=== PATIENT | female | born 1940 | race Caucasian/White ===

== ENCOUNTER 2018-05-19 18:16 | Emergency (ER) | payer MEDICARE, SELFPAY ==
[2018-05-19 18:19] VITALS: BP 155/79; PULSE 74; RESP 20; TEMP 36.2; O2SAT 99; BMI 19.7
[2018-05-19] MEDS: KETOROLAC 60 MG/2 ML VIAL 15 MG IV (19:39)
[2018-05-19] MEDS: DEXAMETHASONE 10 MG/ML VIAL IV (19:39)
[2018-05-19] MEDS: SODIUM CHLORIDE 0.9% 1,000 ML 1000 ML IV (19:39)
[2018-05-19 19:46] LABS: Add Manual Diff / Slide Review NO; Basophils Percent Auto 0.9 % (0-2); Eosinophils Percent Auto 0.7 % (2-4); Hematocrit 38.6 % (36-46); Hemoglobin 13.6 g/dL (12.0-16.0); Lymphocytes Percent Auto 8.5 % (25-40); Mean Corpuscular HGB Conc 35.1 % (30-36); Mean Corpuscular Hemoglobin 31.3 PG (26-34); Mean Corpuscular Volume 89.1 fL (80-100); Monocytes Percent Auto 6.6 % (3-14); Neutrophils Absolute Auto 6600 /uL (3000-5900); Neutrophils Percent Auto 83.3 % (50-75); Platelet Count 155 X10^3/uL (150-400); Red Blood Cell Count 4.34 X10^6/uL (4.0-5.2); Red Cell Distribution Width 13.2 % (11.6-14.8); White Blood Cell Count 7.9 X10^3/uL (4.5-11.0)
--- NOTE | 2018-05-19 19:50 | ED.BACK ---
HPI - Back Pain/Injury General Chief Complaint: Back Pain/Injury Stated Complaint: SCIATICA HIP PAIN LOWER BACK TO LEGS Time Seen by Provider: 05/19/18 18:55 Source: patient Mode of arrival: wheelchair Limitations: no limitations History of Present Illness HPI Narrative: 78-year-old female smoker, with long history of sciatica presents with increasing pain over the past week. Her pain starts in her right lower back and goes into her right lower leg and even her left hip. She denies any urinary complaints such as dysuria, frequency or urgency. She denies any trouble starting or stopping her stream. She denies loss of control of bowels. She has no numbness in her groin. She denies any weakness to her lower extremities or foot drop. She denies any fever or recent injury. She has been under the care of chronic pain doctors and receives Ativan monthly. She has had facet injections on a few occasions and is hoping to get another on Monday. Her pain has been sufficient to limit her ability to eat and drink for the past few days and she lives at home alone with little to no help MD Complaint: back pain Onset (ago): day(s) Duration: constant Similar Symptoms Previously: Yes Location: lumbar spine Severity: severe Quality: burning, sharp and stabbing Radiation: right leg Severity scale (1-10): 8 Relieving factors: immobilization Exacerbating factors: walking Associated symptoms: denies other symptoms Related Data Previous Rx's Medication Instructions Recorded cephalexin [Keflex] 500 mg PO QID 7 Days #28 cap 05/19/18 hydrocodone-acetaminophen 1 tab PO Q4-6H PRN #14 tab 05/19/18 prednisone See Label Instructions .ROUTE 05/19/18 .COMPLEX #30 tab Allergies Allergy/AdvReac Type Severity Reaction Status Date / Time nitrofurantoin Allergy Verified 05/19/18 21:20 Review of Systems Review of Systems All systems reviewed & are unremarkable except as noted in HPI and below Constitutional Denies chills, Denies fever(s), Denies lethargy and Denies weakness Eyes Denies change in vision, Denies eye discharge, Denies irritation and Denies loss of vision ENT Ears, Nose, Mouth, and Throat: Denies change in voice, Denies neck pain and Denies sore throat Cardiovascular Denies chest pain, Denies irregular heart rhythm, Denies lightheadedness, Denies palpitations, Denies dyspnea, Denies dyspnea on exertion and Denies orthopnea Respiratory Denies cough, Denies dyspnea, Denies dyspnea on exertion and Denies wheezing Gastrointestinal Gastrointestinal: Denies abdominal pain, Denies change in bowel habits, Denies diarrhea, Denies nausea and Denies vomiting Genitourinary Denies hematuria, Denies flank pain, Denies urinary incontinence and Denies urinary urgency Musculoskeletal Reports abnormal gait, Reports back pain and Denies neck pain Integumentary/Breasts Denies pruritus, Denies erythema, Denies rash and Denies wounds Neurologic Reports abnormal gait, Denies confusion, Denies loss of vision and Denies weakness Psychiatric Denies anxiety, Denies confusion, Denies depression, Denies homicidal ideation and Denies suicidal ideation Endocrine Denies palpitations Hematologic/Lymphatic Denies easy bruising Allergic/Immunologic Denies wheezing [facility] Social History Smoking Status: Current every day smoker Exam Narrative Exam Narrative: 78-year-old female resting comfortably, obviously in some pain, but resting comfortably Initial Vital Signs Initial Vital Signs: Vital Signs Temperature 97.1 F L 05/19/18 18:19 Pulse Rate 74 05/19/18 18:19 Respiratory Rate 20 05/19/18 18:19 Blood Pressure 155/79 H 05/19/18 18:19 Pulse Oximetry 99 05/19/18 18:19 Const General: cooperative and well developed Nutritional Appearance: well nourished Orientation: alert, awake, oriented x3 and not confused [facility] Head: normocephalic and atraumatic Ears: external ears normal and TM's normal bilaterally Nose: external nose normal and No nasal discharge Face and sinus: sinuses nontender, face symmetric, no sinus tenderness and No dry mucous membranes Mouth: oral mucosae normal and moist mucous membranes Teeth and gingiva: dentition normal Throat: tonsils normal and uvula midline Eyes General: appearance normal, both eyes and all related structures Eyelids: eyelids normal Conjunctivae: conjunctivae normal Sclera: sclerae normal Pupils: PERRL EOM: EOM intact bilaterally Neck Neck: normal visual inspection, trachea midline, No lymphadenopathy, No midline deformity and No JVD Lymphatic: No lymphedema Chest Chest: normal inspection of the chest Resp Effort & Inspection: normal respiratory effort, able to speak in complete sentences, no respiratory distress and no use of accessory muscles Auscultation: clear to auscultation bilaterally, no rales, no rhonchi and no wheezes Cardio Rate: regular rate Rhythm: regular rhythm Heart Sounds: no click, no gallops, no murmurs and no rubs Pulses: normal peripheral pulses GI Inspection: non-distended Palpation: soft, no hepatosplenomegaly, No guarding, No pulsatile mass and No tender Auscultation: normal bowel sounds Back/Spine/Pelvis Back: No CVA tenderness Cervical Spine: cervical ROM normal and No pain with cervical ROM Thoracic/Lumbar Spine: straight leg raise negative bilaterally and pain with thoraco-lumbar ROM Skin General: no rashes or lesions noted, No jaundice and No petechiae Neuro General: alert, oriented x3, gait normal and no focal motor deficits Speech: speech normal Motor: muscle tone normal throughout Sensory Exam: no sensory deficits noted DTR's: Rt Patellar: 1+ and Lt Patellar: 1+ Extrem General: full ROM, no clubbing, cyanosis or edema, no pedal edema and no calf tenderness Psych Appearance: well kempt Mental Status: mental status grossly normal Attitude: cooperative Thought Content: normal and suicidality Judgment: judgment good Course Orders Ordered: ED Orders 05/19/18 19:36 Complete Blood Count AUTO DIFF Stat Comprehensive Metabolic Panel Stat Troponin & CK Cardiac Panel Stat 05/19/18 20:57 Urine Culture Stat Urine Microscopic Stat Discontinued Medications Cefazolin Sodium (Keflex) 1 bottle MISC SEEINSTR ONE Stop: 05/19/18 20:54 Last Admin: 05/19/18 20:58 Dose: 250 mg Dexamethasone (Decadron) 10 mg IV NOW ONE Stop: 05/19/18 19:04 Last Admin: 05/19/18 19:39 Dose: 10 mg Sodium Chloride (Normal Saline 0.9%) 1,000 mls @ 1,000 mls/hr IV BOLUS ONE Stop: 05/19/18 20:02 Last Infusion: 05/19/18 20:46 Dose: 0 mls/hr Admin: 05/19/18 19:39 Dose: 1,000 mls/hr Ketorolac Tromethamine (Toradol) 15 mg IV NOW ONE Stop: 05/19/18 19:04 Last Admin: 05/19/18 19:39 Dose: 15 mg Vital Signs - 8 hr 09/29/18 18:19 05/19/18 20:56 Temperature 97.1 F L Pulse Rate 74 77 Respiratory Rate 20 16 Blood Pressure 155/79 H Blood Pressure [Left Arm] 169/80 H Pulse Oximetry 99 97 MDM - Back Pain/Injury Lab Data Result diagrams: 05/19/18 19:36 05/19/18 19:36 Lab Results 05/19/18 05/19/18 05/19/18 Range/Units 19:36 19:36 19:36 WBC 7.9 (4.5-11.0) X10^3/uL RBC 4.34 (4.0-5.2) X10^6/uL Hgb 13.6 (12.0-16.0) g/dL Hct 38.6 (36-46) % MCV 89.1 (80-100) fL MCH 31.3 (26-34) PG MCHC 35.1 (30-36) % RDW 13.2 (11.6-14.8) % Plt Count 155 (150-400) X10^3/uL Neut % (Auto) 83.3 H (50-75) % Lymph % (Auto) 8.5 L (25-40) % [place] % (Auto) 6.6 (3-14) % Eos % (Auto) 0.7 L (2-4) % Baso % (Auto) 0.9 (0-2) % Neut # (Auto) 6600 H (9816-2332) /uL Sodium 134 L (137-145) mmol/L Potassium 3.7 (3.4-5.1) mmol/L Chloride 97 L (98-107) mmol/L Carbon Dioxide 28 (22-32) mmol/L BUN 13 (7-17) mg/dL Creatinine 0.70 (0.52-1.04) mg/dL Estimated GFR > 60.0 (>60) mL/min BUN/Creatinine Ratio 18.6 (6-22) Glucose 102 (80-110) mg/dL Calcium 9.3 (8.4-10.2) mg/dL Total Bilirubin 0.6 (0.2-1.3) mg/dL AST 19 (14-36) IU/L ALT 20 (9-52) IU/L Alkaline Phosphatase 92 (38-126) U/L Total Creatine Kinase 31 (30-135) U/L CK-MB (CK-2) TNP CK-MB (CK-2) Rel Index TNP Troponin I < 0.012 (0.01-0.034) ng/mL Total Protein 6.7 (6.3-8.2) g/dL Albumin 3.8 (3.5-5.0) g/dL Globulin 2.9 (1.7-4.1) g/dL Albumin/Globulin Ratio 1.3 (1.0-2.8) Urine RBC (0-5/HPF) Urine WBC (0-5/HPF) Ur Squamous Epith Cells Urine Bacteria (None) Ur Culture Indicated? Micro UA Comment 05/19/18 Range/Units 20:57 WBC (4.5-11.0) X10^3/uL RBC (4.0-5.2) X10^6/uL Hgb (12.0-16.0) g/dL Hct (36-46) % MCV (80-100) fL MCH (26-34) PG MCHC (30-36) % RDW (11.6-14.8) % Plt Count (150-400) X10^3/uL Neut % (Auto) (50-75) % Lymph % (Auto) (25-40) % [place] % (Auto) (3-14) % Eos % (Auto) (2-4) % Baso % (Auto) (0-2) % Neut # (Auto) (4796-6424) /uL Sodium (137-145) mmol/L Potassium (3.4-5.1) mmol/L Chloride (98-107) mmol/L Carbon Dioxide (22-32) mmol/L BUN (7-17) mg/dL Creatinine (0.52-1.04) mg/dL Estimated GFR (>60) mL/min BUN/Creatinine Ratio (6-22) Glucose (80-110) mg/dL Calcium (8.4-10.2) mg/dL Total Bilirubin (0.2-1.3) mg/dL AST (14-36) IU/L ALT (9-52) IU/L Alkaline Phosphatase (38-126) U/L Total Creatine Kinase (30-135) U/L CK-MB (CK-2) CK-MB (CK-2) Rel Index Troponin I (0.01-0.034) ng/mL Total Protein (6.3-8.2) g/dL Albumin (3.5-5.0) g/dL Globulin (1.7-4.1) g/dL Albumin/Globulin Ratio (1.0-2.8) Urine RBC None seen (0-5/HPF) Urine WBC 1-5/hpf (0-5/HPF) Ur Squamous Epith Cells 1-5 /hpf Urine Bacteria Few (2-10) H (None) Ur Culture Indicated? Specimen cultured Micro UA Comment Not Reportable Urine Dip Bedside Urine Glucose Negative Bedside Urine Bilirubin - Negative Bedside Urine Ketone +/- 5 Urine Specific [place] 1.015 Bedside Urine Occult Blood - Negative Bedside Urine pH 6.0 Bedside Urine Protein - Negative Bedside Urine Urobilinogen - Negative Bedside Urine Nitrite - Negative Bedside Urine Leukocytes +++ 500 Esterase Discharge Plan Departure Patient Disposition: Home Clinical Impression: Lumbar radiculopathy Discharge Date/Time: 05/19/18 21:22 Interventions: ED Discharge Assessment Last Done: 05/19/18 21:20 Instructions: DI for Lumbar Radiculopathy Activity Restrictions/Additional Instructions: *You have been diagnosed with [ Acute on chronic lumbar radiculopathy ] *What to do: *Take medications as directed *Follow up with your primary care provider in 2-3 days, call for an appointment. Let them know you were seen in the Emergency Department and that we ask that you be seen in follow up *Return to ER if you should have any new, worsening or concerning symptoms, such as [ loss of control of bowel or bladder, weakness severe lower extremities, numbness in your groin, other bothersome symptoms] Prescriptions: New prednisone 10 mg tablet See Label Instructions .ROUTE .COMPLEX Qty: 30 RF: 0 hydrocodone-acetaminophen 5-325 mg tablet 1 tab PO Q4-6H PRN (Reason: pain) Qty: 14 RF: 0 cephalexin [Keflex] 500 mg capsule 500 mg PO QID 7 Days Qty: 28 RF: 0
--- NOTE | 2018-05-19 19:55 | ED_ITS ---
HPI - Back Pain/Injury General Chief Complaint: Back Pain/Injury Stated Complaint: SCIATICA HIP PAIN LOWER BACK TO LEGS Time Seen by Provider: 05/19/18 18:55 Source: patient Mode of arrival: wheelchair Limitations: no limitations History of Present Illness HPI Narrative: 78-year-old female smoker, with long history of sciatica presents with increasing pain over the past week. Her pain starts in her right lower back and goes into her right lower leg and even her left hip. She denies any urinary complaints such as dysuria, frequency or urgency. She denies any trouble starting or stopping her stream. She denies loss of control of bowels. She has no numbness in her groin. She denies any weakness to her lower extremities or foot drop. She denies any fever or recent injury. She has been under the care of chronic pain doctors and receives Ativan monthly. She has had facet injections on a few occasions and is hoping to get another on Monday. Her pain has been sufficient to limit her ability to eat and drink for the past few days and she lives at home alone with little to no help MD Complaint: back pain Onset (ago): day(s) Duration: constant Similar Symptoms Previously: Yes Location: lumbar spine Severity: severe Quality: burning, sharp and stabbing Radiation: right leg Severity scale (1-10): 8 Relieving factors: immobilization Exacerbating factors: walking Associated symptoms: denies other symptoms Related Data Previous Rx's Medication Instructions Recorded cephalexin [Keflex] 500 mg PO QID 7 Days #28 cap 05/19/18 hydrocodone-acetaminophen 1 tab PO Q4-6H PRN #14 tab 05/19/18 prednisone See Label Instructions .ROUTE 05/19/18 .COMPLEX #30 tab Allergies Allergy/AdvReac Type Severity Reaction Status Date / Time nitrofurantoin Allergy Verified 05/19/18 21:20 Review of Systems Review of Systems All systems reviewed & are unremarkable except as noted in HPI and below Constitutional Denies chills, Denies fever(s), Denies lethargy and Denies weakness Eyes Denies change in vision, Denies eye discharge, Denies irritation and Denies loss of vision ENT Ears, Nose, Mouth, and Throat: Denies change in voice, Denies neck pain and Denies sore throat Cardiovascular Denies chest pain, Denies irregular heart rhythm, Denies lightheadedness, Denies palpitations, Denies dyspnea, Denies dyspnea on exertion and Denies orthopnea Respiratory Denies cough, Denies dyspnea, Denies dyspnea on exertion and Denies wheezing Gastrointestinal Gastrointestinal: Denies abdominal pain, Denies change in bowel habits, Denies diarrhea, Denies nausea and Denies vomiting Genitourinary Denies hematuria, Denies flank pain, Denies urinary incontinence and Denies urinary urgency Musculoskeletal Reports abnormal gait, Reports back pain and Denies neck pain Integumentary/Breasts Denies pruritus, Denies erythema, Denies rash and Denies wounds Neurologic Reports abnormal gait, Denies confusion, Denies loss of vision and Denies weakness Psychiatric Denies anxiety, Denies confusion, Denies depression, Denies homicidal ideation and Denies suicidal ideation Endocrine Denies palpitations Hematologic/Lymphatic Denies easy bruising Allergic/Immunologic Denies wheezing [facility] Social History Smoking Status: Current every day smoker Exam Narrative Exam Narrative: 78-year-old female resting comfortably, obviously in some pain , but resting comfortably Initial Vital Signs Initial Vital Signs: Vital Signs Temperature 97.1 F L 05/19/18 18:19 Pulse Rate 74 05/19/18 18:19 Respiratory Rate 20 05/19/18 18:19 Blood Pressure 155/79 H 05/19/18 18:19 Pulse Oximetry 99 05/19/18 18:19 Const General: cooperative and well developed Nutritional Appearance: well nourished Orientation: alert, awake, oriented x3 and not confused [facility] Head: normocephalic and atraumatic Ears: external ears normal and TM's normal bilaterally Nose: external nose normal and No nasal discharge Face and sinus: sinuses nontender, face symmetric, no sinus tenderness and No dry mucous membranes Mouth: oral mucosae normal and moist mucous membranes Teeth and gingiva: dentition normal Throat: tonsils normal and uvula midline Eyes General: appearance normal, both eyes and all related structures Eyelids: eyelids normal Conjunctivae: conjunctivae normal Sclera: sclerae normal Pupils: PERRL EOM: EOM intact bilaterally Neck Neck: normal visual inspection, trachea midline, No lymphadenopathy, No midline deformity and No JVD Lymphatic: No lymphedema Chest Chest: normal inspection of the chest Resp Effort & Inspection: normal respiratory effort, able to speak in complete sentences, no respiratory distress and no use of accessory muscles Auscultation: clear to auscultation bilaterally, no rales, no rhonchi and no wheezes Cardio Rate: regular rate Rhythm: regular rhythm Heart Sounds: no click, no gallops, no murmurs and no rubs Pulses: normal peripheral pulses GI Inspection: non-distended Palpation: soft, no hepatosplenomegaly, No guarding, No pulsatile mass and No tender Auscultation: normal bowel sounds Back/Spine/Pelvis Back: No CVA tenderness Cervical Spine: cervical ROM normal and No pain with cervical ROM Thoracic/Lumbar Spine: straight leg raise negative bilaterally and pain with thoraco-lumbar ROM Skin General: no rashes or lesions noted, No jaundice and No petechiae Neuro General: alert, oriented x3, gait normal and no focal motor deficits Speech: speech normal Motor: muscle tone normal throughout Sensory Exam: no sensory deficits noted DTR's: Rt Patellar: 1+ and Lt Patellar: 1+ Extrem General: full ROM, no clubbing, cyanosis or edema, no pedal edema and no calf tenderness Psych Appearance: well kempt Mental Status: mental status grossly normal Attitude: cooperative Thought Content: normal and suicidality Judgment: judgment good Course Orders Ordered: ED Orders 05/19/18 19:36 Complete Blood Count AUTO DIFF Stat Comprehensive Metabolic Panel Stat Troponin & CK Cardiac Panel Stat 05/19/18 20:57 Urine Culture Stat Urine Microscopic Stat Discontinued Medications Cefazolin Sodium (Keflex) 1 bottle MISC SEEINSTR ONE Stop: 05/19/18 20:54 Last Admin: 05/19/18 20:58 Dose: 250 mg Dexamethasone (Decadron) 10 mg IV NOW ONE Stop: 05/19/18 19:04 Last Admin: 05/19/18 19:39 Dose: 10 mg Sodium Chloride (Normal Saline 0.9%) 1,000 mls @ 1,000 mls/hr IV BOLUS ONE Stop: 05/19/18 20:02 Last Infusion: 05/19/18 20:46 Dose: 0 mls/hr Admin: 05/19/18 19:39 Dose: 1,000 mls/hr Ketorolac Tromethamine (Toradol) 15 mg IV NOW ONE Stop: 05/19/18 19:04 Last Admin: 05/19/18 19:39 Dose: 15 mg Vital Signs - 8 hr 09/29/18 18:19 05/19/18 20:56 Temperature 97.1 F L Pulse Rate 74 77 Respiratory Rate 20 16 Blood Pressure 155/79 H Blood Pressure [Left Arm] 169/80 H Pulse Oximetry 99 97 MDM - Back Pain/Injury Lab Data Result diagrams: 05/19/18 19:36 05/19/18 19:36 Lab Results 05/19/18 05/19/18 05/19/18 Range/Units 19:36 19:36 19:36 WBC 7.9 (4.5-11.0) X10^3/uL RBC 4.34 (4.0-5.2) X10^6/uL Hgb 13.6 (12.0-16.0) g/dL Hct 38.6 (36-46) % MCV 89.1 (80-100) fL MCH 31.3 (26-34) PG MCHC 35.1 (30-36) % RDW 13.2 (11.6-14.8) % Plt Count 155 (150-400) X10^3/uL Neut % (Auto) 83.3 H (50-75) % Lymph % (Auto) 8.5 L (25-40) % [place] % (Auto) 6.6 (3-14) % Eos % (Auto) 0.7 L (2-4) % Baso % (Auto) 0.9 (0-2) % Neut # (Auto) 6600 H (2090-2696) /uL Sodium 134 L (137-145) mmol/L Potassium 3.7 (3.4-5.1) mmol/L Chloride 97 L (98-107) mmol/L Carbon Dioxide 28 (22-32) mmol/L BUN 13 (7-17) mg/dL Creatinine 0.70 (0.52-1.04) mg/dL Estimated GFR > 60.0 (>60) mL/min BUN/Creatinine Ratio 18.6 (6-22) Glucose 102 (80-110) mg/dL Calcium 9.3 (8.4-10.2) mg/dL Total Bilirubin 0.6 (0.2-1.3) mg/dL AST 19 (14-36) IU/L ALT 20 (9-52) IU/L Alkaline Phosphatase 92 (38-126) U/L Total Creatine Kinase 31 (30-135) U/L CK-MB (CK-2) TNP CK-MB (CK-2) Rel Index TNP Troponin I < 0.012 (0.01-0.034) ng/mL Total Protein 6.7 (6.3-8.2) g/dL Albumin 3.8 (3.5-5.0) g/dL Globulin 2.9 (1.7-4.1) g/dL Albumin/Globulin Ratio 1.3 (1.0-2.8) Urine RBC (0-5/HPF) Urine WBC (0-5/HPF) Ur Squamous Epith Cells Urine Bacteria (None) Ur Culture Indicated? Micro UA Comment 05/19/18 Range/Units 20:57 WBC (4.5-11.0) X10^3/uL RBC (4.0-5.2) X10^6/uL Hgb (12.0-16.0) g/dL Hct (36-46) % MCV (80-100) fL MCH (26-34) PG MCHC (30-36) % RDW (11.6-14.8) % Plt Count (150-400) X10^3/uL Neut % (Auto) (50-75) % Lymph % (Auto) (25-40) % [place] % (Auto) (3-14) % Eos % (Auto) (2-4) % Baso % (Auto) (0-2) % Neut # (Auto) (6722-4805) /uL Sodium (137-145) mmol/L Potassium (3.4-5.1) mmol/L Chloride (98-107) mmol/L Carbon Dioxide (22-32) mmol/L BUN (7-17) mg/dL Creatinine (0.52-1.04) mg/dL Estimated GFR (>60) mL/min BUN/Creatinine Ratio (6-22) Glucose (80-110) mg/dL Calcium (8.4-10.2) mg/dL Total Bilirubin (0.2-1.3) mg/dL AST (14-36) IU/L ALT (9-52) IU/L Alkaline Phosphatase (38-126) U/L Total Creatine Kinase (30-135) U/L CK-MB (CK-2) CK-MB (CK-2) Rel Index Troponin I (0.01-0.034) ng/mL Total Protein (6.3-8.2) g/dL Albumin (3.5-5.0) g/dL Globulin (1.7-4.1) g/dL Albumin/Globulin Ratio (1.0-2.8) Urine RBC None seen (0-5/HPF) Urine WBC 1-5/hpf (0-5/HPF) Ur Squamous Epith Cells 1-5 /hpf Urine Bacteria Few (2-10) H (None) Ur Culture Indicated? Specimen cultured Micro UA Comment Not Reportable Urine Dip Bedside Urine Glucose Negative Bedside Urine Bilirubin - Negative Bedside Urine Ketone +/- 5 Urine Specific [place] 1.015 Bedside Urine Occult Blood - Negative Bedside Urine pH 6.0 Bedside Urine Protein - Negative Bedside Urine Urobilinogen - Negative Bedside Urine Nitrite - Negative Bedside Urine Leukocytes +++ 500 Esterase Discharge Plan Departure Patient Disposition: Home Clinical Impression: Lumbar radiculopathy Discharge Date/Time: 05/19/18 21:22 Interventions: ED Discharge Assessment Last Done: 05/19/18 21:20 Instructions: DI for Lumbar Radiculopathy Activity Restrictions/Additional Instructions: *You have been diagnosed with [ Acute on chronic lumbar radiculopathy ] *What to do: *Take medications as directed *Follow up with your primary care provider in 2-3 days, call for an appointment. Let them know you were seen in the Emergency Department and that we ask that you be seen in follow up *Return to ER if you should have any new, worsening or concerning symptoms , such as [ loss of control of bowel or bladder, weakness severe lower extremities, numbness in your groin, other bothersome symptoms] Prescriptions: New prednisone 10 mg tablet See Label Instructions .ROUTE .COMPLEX Qty: 30 RF: 0 hydrocodone-acetaminophen 5-325 mg tablet 1 tab PO Q4-6H PRN (Reason: pain) Qty: 14 RF: 0 cephalexin [Keflex] 500 mg capsule 500 mg PO QID 7 Days Qty: 28 RF: 0
[2018-05-19 19:58] LABS: Creatine Kinase 31 U/L (30-135)
[2018-05-19 20:00] LABS: Alanine Aminotransferase 20 IU/L (9-52); Albumin 3.8 g/dL (3.5-5.0); Albumin Globulin Ratio 1.3 (1.0-2.8); Alkaline Phosphatase 92 U/L (38-126); Aspartate Aminotransferase 19 IU/L (14-36); BUN Creatinine Ratio 18.6 (6-22); Bilirubin Total 0.6 mg/dL (0.2-1.3); Blood Urea Nitrogen 13 mg/dL (7-17); Calcium 9.3 mg/dL (8.4-10.2); Carbon Dioxide 28 mmol/L (22-32); Chloride 97 mmol/L (98-107); Estimated Glomerular Filt Rate > 60.0 mL/min (>60); Globulin 2.9 g/dL (1.7-4.1); Glucose 102 mg/dL (80-110); HEMOLYSIS < 15 (0-50); Potassium 3.7 mmol/L (3.4-5.1); Sodium 134 mmol/L (137-145); Total Protein 6.7 g/dL (6.3-8.2)
[2018-05-19 20:13] LABS: Troponin I < 0.012 ng/mL (0.01-0.034)
[2018-05-19 20:56] VITALS: BP 169/80; PULSE 77; RESP 16; O2SAT 97
[2018-05-19 20:58] LABS: RBC Urine None Seen (0-5/HPF)
[2018-05-19] MEDS: cephALEXin 250 MG PREPACK 1 BOTTLE MISC (20:58)
[2018-05-19 21:09] LABS: Bacteria Urine Few (2-10); Squamous Epithelial Cell Urine 1-5 /HPF; WBC Urine 1-5/HPF (0-5/HPF)
[2018-05-19 21:10] LABS: Culture Indicated Urine Specimen Cultured
== END 2018-05-19 21:22 | disposition home or self-care (01) ==
PROVIDERS: Emergency Provider Emergency Medicine
DX: M54.16 Radiculopathy, lumbar region (principal)
CPT/HCPCS: 36591; 80053; 81003; 81015; 82550; 84484; 85025; 87077; 87086; 87147; 96361; 96374; 96375; 99283; 99284; J1100; J1885